=== PATIENT | male | born 1975 | race Two or more races ===

== ENCOUNTER 2018-02-26 20:05 | Emergency (ER) | payer SELFPAY ==
[2018-02-26] MEDS ORDERED: NS 1,000 ML IV ONE (20:12)
--- NOTE | 2018-02-26 20:12 | EDPHY ---
H & P Time Seen by Provider: 02/26/18 20:08 HPI/ROS: CHIEF COMPLAINT: Seizure HISTORY OF PRESENT ILLNESS: The patient is a 42-year-old male who presents emergency department with a 2nd time seizure. Additional history was obtained through patient's friend and EMS. The patient has had 1 previous episode of having a seizure. He did not follow up with the doctor. The patient was at a friend's house and sitting down when he suddenly had"convulsions."He was lowered to the ground. He did not sustain trauma. He initially had some blood from his mouth. His friend who is with him states he bit his tongue. EMS reports that the patient was slightly confused on arrival but his mentation has improved. His glucose was 165. Patient is able to answer questions. He states that he has had 1 previous seizure. Patient is not currently taking seizure medication. The patient denies drugs or alcohol. He has no headache or neck pain. Patient denies any chest or abdominal pain. No recent fall or trauma. REVIEW OF SYSTEMS: 10 systems were reveiwed and are negative with the exception of the elements mentioned in the history of present illness. Past Medical/Surgical History: Includes 1 previous seizure Past surgical history: Noncontributory Social history: Patient does not drink alcohol use drugs. Smoking Status: Never smoked Physical Exam: Vitals noted GENERAL: No acute distress, alert. HEENT: Eyes normal to inspection, normal pharynx, no signs of dehydration. The patient has a bite kory on his tongue bilaterally. There is no significant laceration. No need of suture repair. NECK: Normal, supple. No spinal tenderness RESPIRATORY: Clear to auscultation bilaterally, no rales, rhonchi or wheezing. CVS: Regular rate and rhythm, no rubs, murmurs, or gallops. ABDOMEN: Soft, nontender, nondistended, no organomegaly. BACK: Normal to inspection, no CVA tenderness. No spinal tenderness SKIN: Normal color, no rash, warm, dry. No pallor. EXTREMITIES: No pedal edema, no calf tenderness, no Homans sign or cords, no joint swelling. NEURO/PSYCH: Alert and oriented, normal mood and affect, normal motor sensory exam. No obvious cranial nerve deficit. Constitutional: Initial Vital Signs Temperature (C) 37.0 C 02/26/18 20:00 Heart Rate 120 H 02/26/18 20:00 Respiratory Rate 19 01/20/19 20:00 Blood Pressure 131/89 H 02/26/18 20:00 O2 Sat (%) 96 02/26/18 20:00 O2 Delivery Mode Room Air Allergies/Adverse Reactions: No Known Allergies Allergy (Unverified 02/26/18 20:10) Home Medications: Medication Instructions Recorded "Seizure Med" 08/05/12 Ibuprofen 800 mg PO Q6 PRN #15 tablet 08/05/12 NK [No Known Home Meds] 08/30/15 Medical Decision Making - Diagnostics Imaging Results: Imaging Impressions Head CT 02/26/18 20:12 Impression: Stable and normal brain. Results called to Dr. Sotelo at 20:35 PM General information for patients regarding this examination can be found at [email or web address]. If you have questions or comments about this report, please contact me at [phone] (hospital) or [phone] (cell). ED Course/Re-evaluation: In the emergency department I met EMS on arrival. I took report from the home appliances mechanic. Took further history from the patient's friend who is present. Head CT and laboratory studies were ordered. CT head: Please refer the dictated report. Stable. No acute abnormality CBC and chemistry unremarkable except for low CO2. I discussed results with the patient. He requested discharge. He had no on further evaluation in the emergency department. He had a nonfocal neuro exam on recheck. He was given follow-up information with Dr. Lagunas. He is given warnings prior to leaving. Differential Diagnosis: Includes seizure disorder, epilepsy, subarachnoid hemorrhage, ischemic CVA, hemorrhagic CVA, dissection, aneurysm, electrolyte abnormality, sugar abnormality - Data Points Laboratory Results: Laboratory Results 02/26/18 20:19 02/26/18 20:13 02/26/18 02/26/18 20:19 20:13 WBC 8.76 10^3/uL 10^3/uL (3.80-9.50) RBC 5.29 10^6/uL 10^6/uL (4.40-6.38) Hgb 14.5 g/dL g/dL (13.7-17.5) Hct 44.8 % % (40.0-51.0) MCV 84.7 fL fL (81.5-99.8) MCH 27.4 pg L pg (27.9-34.1) MCHC 32.4 g/dL g/dL (32.4-36.7) RDW 13.4 % % (11.5-15.2) Plt Count 304 10^3/uL 10^3/uL (150-400) MPV 11.1 fL fL (8.7-11.7) Neut % (Auto) 58.7 % % (39.3-74.2) Lymph % (Auto) 34.2 % % (15.0-45.0) [place] % (Auto) 4.8 % % (4.5-13.0) Eos % (Auto) 1.3 % % (0.6-7.6) Baso % (Auto) 0.5 % % (0.3-1.7) Nucleat RBC Rel Count 0.0 % % (0.0-0.2) Absolute Neuts (auto) 5.15 10^3/uL 10^3/uL (1.70-6.50) Absolute Lymphs (auto) 3.00 10^3/uL 10^3/uL (1.00-3.00) Absolute Monos (auto) 0.42 10^3/uL 10^3/uL (0.30-0.80) Absolute Eos (auto) 0.11 10^3/uL 10^3/uL (0.03-0.40) Absolute Basos (auto) 0.04 10^3/uL 10^3/uL (0.02-0.10) Absolute Nucleated RBC 0.00 10^3/uL 10^3/uL (0-0.01) Immature Gran % 0.5 % % (0.0-1.1) Immature Gran # 0.04 10^3/uL 10^3/uL (0.00-0.10) Sodium 141 mEq/L mEq/L (135-145) Potassium 5.0 mEq/L mEq/L (3.5-5.2) Chloride 105 mEq/L mEq/L (97-110) Carbon Dioxide 13 mEq/l L mEq/l (22-31) Anion Gap 23 mEq/L H mEq/L (6-14) BUN 13 mg/dL mg/dL (7-23) Creatinine 1.1 mg/dL mg/dL (0.7-1.3) Estimated GFR > 60 Glucose 114 mg/dL H mg/dL (70-100) Calcium 9.7 mg/dL mg/dL (8.5-10.4) Specimen Hemolysis 142 Medications Given: Discontinued Medications Sodium Chloride (Ns) 1,000 mls @ 0 mls/hr IV ONCE ONE; Wide Open PRN Reason: Protocol Stop: 02/26/18 20:13 Last Admin: 02/26/18 20:30 Dose: 1,000 mls Departure - Departure Disposition: Home, Routine, Self-Care Clinical Impression: Seizure Condition: Good Instructions: Recurrent Seizures in Adults (ED) Additional Instructions: Return with repeat episodes of seizure. You need close follow-up with Neurology. You been given the contact information. Referrals: Evert Lagunas MD [Medical Doctor] - 3-4 days, if not improved
[2018-02-26 20:30] LABS: PLATELET COUNT 304 10^3/uL (150-400)
[2018-02-26 21:08] VITALS: BP 122/67
== END 2018-02-26 21:21 | disposition home or self-care (01) ==
LOC: EDUNIT#
DX: R56.9 Unspecified convulsions (principal); E86.9 Volume depletion, unspecified